=== PATIENT | female | born 1990 | race Caucasian/White ===

== ENCOUNTER → 2017-05-23 | Outpatient (CLI) | payer OTHER ==
[2016-09-07 00:09] VITALS: BP 122/81
[2017-05-23 19:04] LABS: BASOPHILS # (AUTO) 0.1 X10^3/uL (0.0-0.1); BASOPHILS % (AUTO) 0.7 % (0.2-1.0); EOSINOPHILS # (AUTO) 0.1 x10^3/uL (0.0-0.2); EOSINOPHILS % (AUTO) 1.1 % (0.9-2.9); HEMATOCRIT 39.5 % (36.0-47.0); HEMOGLOBIN 13.6 g/dL (12.0-16.0); LYMPHOCYTES # (AUTO) 2.7 X10^3/uL (1.3-2.9); LYMPHOCYTES % (AUTO) 23.3 % (21.0-51.0); MEAN CORPUSCULAR HEMOGLOBIN 31.4 pg (27.0-34.0); MEAN CORPUSCULAR HGB CONC 34.4 g/dL (33.0-35.0); MEAN CORPUSCULAR VOLUME 91.3 fL (80.0-100.0); MONOCYTES # (AUTO) 1.2 x10^3/uL (0.3-0.8); MONOCYTES % (AUTO) 10.3 % (0.0-13.0); NEUTROPHILS # (AUTO) 7.5 x10^3/uL (2.2-4.8); NEUTROPHILS % (AUTO) 64.6 % (42.0-75.0); PLATELET COUNT 230 X10^3/uL (150.0-450.0); RED BLOOD COUNT 4.33 X10^6/uL (3.5-5.4); RED CELL DISTRIBUTION WIDTH 13.2 % (11.6-16.5); WHITE BLOOD COUNT 11.6 X10^3/uL (3.6-10.0)
[2017-05-23 19:16] LABS: ALANINE AMINOTRANSFERASE 22 Units/L (12-78); ALBUMIN 4.2 g/dL (3.4-5.0); ALKALINE PHOSPHATASE 53 Units/L (46-116); ASPARTATE AMINO TRANSFERASE 19 Units/L (15-37); BLOOD UREA NITROGEN 11 mg/dL (7-18); C-REACTIVE PROTEIN < 0.50 mg/L (0-3.0); CALCIUM 9.2 mg/dL (8.5-10.1); CARBON DIOXIDE 30.2 mmol/L (21-32); CHLORIDE 104 mmol/L (98-107); CREATININE 0.79 mg/dL (0.55-1.02); SODIUM 141 mmol/L (136-145); TOTAL PROTEIN 7.9 g/dL (6.4-8.2); eGFR BLACK RACES > 60 (>60); eGFR NON BLACK RACES > 60 (>60)
[2017-05-23 20:27] LABS: ERYTHROCYTE SEDIMENTATION RATE 2 MM/HOUR (0-20)
== END ==
LOC: LAB 18:43
PROVIDERS: ATTEND Nurse Practitioner Family
DX: M79.1 Myalgia (principal)
CPT/HCPCS: 36415; 80053; 85025; 85652; 86140

== ENCOUNTER → 2017-05-24 | Outpatient (CLI) | payer OTHER ==
[2016-09-07 00:09] VITALS: BP 122/81
--- NOTE | 2017-05-24 14:43 | RAD ---
HISTORY: Low back pain Study: Lumbar spine AP, lateral, bilateral obliques, spot Comparison: None Findings: Normal alignment of the lumbar spine is maintained. The posterior elements appear unremarkable in th eir appearance. The disk space height is maintained without significant endplate sclerosis. No evid ence for acute fracture can be identified. No spondylolysis or spondylolisthesis is identified. The S I joints are normal. IMPRESSION: 1. Negative exam. Reported By:
--- NOTE | 2017-05-24 14:44 | RAD ---
HISTORY: Upper back pain, nontraumatic Study: T-spine AP, lateral, swimmer's Comparison: None Findings: Normal alignment of the thoracic spine is maintained. The disk space height is maintained without si gnificant endplate sclerosis. No evidence for acute fracture can be identified. the pedicles are int act. The paraspinous soft tissues are normal. IMPRESSION: 1. Negative exam. Reported By:
== END ==
LOC: RAD 13:16
PROVIDERS: ATTEND Psychiatry & Neurology Neurology
DX: M54.6 Pain in thoracic spine (principal); M54.5 Low back pain
CPT/HCPCS: 72072; 72110

== ENCOUNTER → 2017-06-25 | Outpatient (CLI) | payer OTHER ==
[2016-09-07 00:09] VITALS: BP 122/81
--- NOTE | 2017-06-26 08:44 | US ---
History: Dyspareunia Study: Ultrasound of the pelvis Comparison: None Findings: Go the uterus measures 8 cm length by in 3.2 cm AP diameter in the endometrium measures 6.5 mm thickness. The right ovary measures 3.07 x 1.9 cm. The left ovary measures 2.9 x 1.8 cm without m ass. There is no free fluid. There is an IUD in good position within the uterus. There is a right adn exal 3 cm cyst. There is no free fluid. Impression: 1. 3 cm right adnexal ovarian cyst 2. IUD in good position Reported By:
== END | disposition home or self-care (01) ==
LOC: RAD 15:59
PROVIDERS: ATTEND Psychiatry & Neurology Neurology
DX: N94.19 Other specified dyspareunia (principal); Z97.5 Presence of (intrauterine) contraceptive device; N83.291 Other ovarian cyst, right side
CPT/HCPCS: 76856

== ENCOUNTER → 2017-07-02 | Outpatient (CLI) | payer OTHER ==
[2016-09-07 00:09] VITALS: BP 122/81
--- NOTE | 2017-07-02 13:29 | MRI ---
Examination: MRI of the lumbar spine. Clinical History: Low back pain. Technique: Multiple sequences were obtained in the sagittal and axial planes. Comparison: X-rays of the lumbar spine dated 05/24/2017. Findings: The lumbar spine was imaged from the top of T11 down to the sacrum. The conus medullaris is at the le alicia of L1. No conal mass is noted. The vertebral body alignment is within normal limits. The intervertebral disc spaces are well maintai juan carlos. No vertebral body signal abnormality is noted. Vertebral body endplate deformities, consistent with Schmorl's nodes are present at the T11, T12, L1, L2 and L3 levels. No paraspinal abnormality is noted. L1-2: Unremarkable. L2-3: Unremarkable. L3-4: Unremarkable. L4-5: Unremarkable. L5-S1: Unremarkable. Impression: 1. There is no focal or diffuse bulge of the annulus fibrosis, neural foraminal narrowing or central canal stenosis noted at any of the levels in the lumbar spine. 2. Schmorl's nodes are present at multiple levels in the thoracic and lumbar spine. Reported By:
[2017-07-04 06:43] LABS: DEHYDROEPIANDROSTERONE SULFATE 73 ug/dL (65-380)
== END | disposition home or self-care (01) ==
LOC: RAD 07:52
PROVIDERS: ATTEND Nurse Practitioner Family
DX: N64.4 Mastodynia (principal); M54.5 Low back pain; M51.46 Schmorl's nodes, lumbar region; M51.44 Schmorl's nodes, thoracic region
CPT/HCPCS: 36415; 72148; 82627; 82670; 84144; 84270; 84402; 84403

== ENCOUNTER → 2018-01-16 | Outpatient (CLI) | payer OTHER ==
[2016-09-07 00:09] VITALS: BP 122/81
[2018-01-16 11:48] LABS: ALANINE AMINOTRANSFERASE 30 Units/L (12-78); ALBUMIN 4.1 g/dL (3.4-5.0); ALKALINE PHOSPHATASE 78 Units/L (46-116); ASPARTATE AMINO TRANSFERASE 14 Units/L (15-37); BASOPHILS % (AUTO) 0.3 % (0.2-1.0); BLOOD UREA NITROGEN 12 mg/dL (7-18); CALCIUM 8.4 mg/dL (8.5-10.1); CHLORIDE 98 mmol/L (98-107); CREATININE 0.72 mg/dL (0.55-1.02); EOSINOPHILS # (AUTO) 0.1 x10^3/uL (0.0-0.2); EOSINOPHILS % (AUTO) 0.9 % (0.9-2.9); HEMATOCRIT 38.8 % (36.0-47.0); HEMOGLOBIN 13.4 g/dL (12.0-16.0); LYMPHOCYTES # (AUTO) 3.1 X10^3/uL (1.3-2.9); LYMPHOCYTES % (AUTO) 27.2 % (21.0-51.0); MEAN CORPUSCULAR HEMOGLOBIN 30.4 pg (27.0-34.0); MEAN CORPUSCULAR HGB CONC 34.5 g/dL (33.0-35.0); MEAN CORPUSCULAR VOLUME 88.2 fL (80.0-100.0); MEAN PLATELET VOLUME 6.9 fL (7.4-11.0); MONOCYTES # (AUTO) 1.1 x10^3/uL (0.3-0.8); NEUTROPHILS % (AUTO) 61.6 % (42.0-75.0); PLATELET COUNT 322 X10^3/uL (150.0-450.0); RED BLOOD COUNT 4.39 X10^6/uL (3.5-5.4); SODIUM 136 mmol/L (136-145); TOTAL PROTEIN 7.9 g/dL (6.4-8.2); WHITE BLOOD COUNT 11.4 X10^3/uL (3.6-10.0); eGFR BLACK RACES > 60 (>60); eGFR NON BLACK RACES > 60 (>60)
[2018-01-16 12:12] LABS: VALPROIC ACID 103.8 ug/mL (50-100)
[2018-01-16 12:44] LABS: ERYTHROCYTE SEDIMENTATION RATE 5 MM/HOUR (0-20)
== END ==
LOC: LAB 11:08
PROVIDERS: ATTEND Psychiatry & Neurology Neurology
DX: G40.909 Epilepsy, unspecified, not intractable, without status epilepticus (principal); M54.6 Pain in thoracic spine
CPT/HCPCS: 36415; 80053; 80164; 85025; 85652; 86140